=== PATIENT | male | born 1980 | race Caucasian/White ===

== ENCOUNTER 2022-01-24 13:19 | Outpatient (CLI) | payer OTHER ==
--- NOTE | 2022-01-24 15:43 | XRay Report ---
CHEST 2 VIEWS INDICATION / CLINICAL INFORMATION: R/O LATENT AND OR TB INFECTION. COMPARISON: None available. FINDINGS: SUPPORT DEVICES: None. HEART / MEDIASTINUM: The heart size and pulmonary vasculature are normal. LUNGS / PLEURA: No significant pulmonary or pleural abnormality. No pneumothorax. ADDITIONAL FINDINGS: No significant additional findings. IMPRESSION: No acute findings. No radiographic evidence of active tuberculosis. Signer Name: Christian Garcia MD Signed: 01/24/2022 3:38 PM Workstation Name: [email or web address]
== END 2022-01-24 13:20 | disposition home or self-care (01) ==
LOC: XRAY 13:19
PROVIDERS: ATTEND Family Medicine
DX: R76.11 Nonspecific reaction to tuberculin skin test without active tuberculosis (principal)
CPT/HCPCS: 71046